=== PATIENT | male | born 1965 | race Caucasian/White ===

== ENCOUNTER 2017-01-31 18:56 | Inpatient (IN) ==
--- NOTE | 2017-01-31 20:23 | Emergency Department Note ---
Disposition Clinical Impression: Abscess of skin or subcutaneous tissue, Cellulitis Disposition: Home, Self-Care Condition: Fair Referrals: Luiz Brock DO [Primary Care Provider] - Forms: ED Satisfaction Letter Time of Disposition: 00:02 Skin/Abscess/FB HPI Chief complaint: ED Skin/Abscess/Foreign Body Stated complaint: abscess on right palm Time Seen by Provider: 01/31/17 20:18 Source: patient Mode of arrival: private vehicle Limitations: no limitations Nursing Notes Reviewed: Yes Vital Signs Reviewed: Yes HPI Narrative: 51-year-old male presents to the emergency department with complaining of an abscess to his right hand. Patient states that this area has been progressively worsening after an injury which occurred approximately 20 years ago. Patient states that over the last 12 months it has been progressively becoming more painful and swollen. Patient has been evaluated at several different facilities, most recently evaluated here by Dr. Dominguez. Patient states that he was seen in the office today and had the site aspirated, and then states "I was told to come here for admission, IV antibiotics and surgery. " There has not been any communication noted between physician to physician or mid -level provider regarding this patient's plan of care. Review of his documentation which she has on him shows that patient is currently being treated with hydrocodone 7.5 milligrams and doxycycline. Patient states that he has severe pain and difficulty extending his fingers. He denies any fever, chills, nausea or vomiting. He denies any chest pain or shortness of breath. He denies any dizziness or lightheadedness. Patient is unsure of his current tetanus status, but refuses immunization. Pt Subjective Complaint: abscess/boil Onset (ago): year(s) Tetanus Up to Date: no Location: R hand Severity: severe Quality: aching, constant Consistency: constant Improves with: none Worsens with: palpation, movement Context: none Associated symptoms: Reports: denies other symptoms Treatments prior to arrival: antibiotic, prescription analgesic Home Medications Medication Instructions Recorded Confirmed Gabapentin [Neurontin] 300 mg PO TID 01/15/17 01/31/17 Hydrocodone Bitartrate [Zohydro ER] 50 mg PO BID PRN 01/15/17 01/31/17 Methocarbamol [Robaxin] 750 mg PO Q8HR 01/15/17 01/31/17 Allergies Allergy/AdvReac Type Severity Reaction Status Date / Time Penicillins [PCN] Allergy See Verified 01/31/17 19:22 Comments tramadol Allergy Itching Verified 01/31/17 19:22 All systems ED: reviewed and negative except as stated. Constitutional: Denies: fever, chills Cardiovascular: Denies: chest pain Respiratory: Denies: cough, dyspnea Gastrointestinal: Denies: abdominal pain, nausea, vomiting Musculoskeletal: Reports: arthralgia, myalgia. Denies: back pain, neck pain Integumentary: Reports: lesions. Denies: rash, abrasion Neurological: Denies: headache Psychiatric: Denies: anxiety, depression, suicidal thoughts, homicidal thoughts Past Medical History - Past Medical History Attestation: Yes The following information was validated with the patient. Source: patient, nursing notes reviewed Medical history: Reports: arthritis, other Psychiatric history: Reports: no psych history - Social History Smoking Status: Former smoker Smokeless Tobacco Status: No Alcohol use: Reports: none Drug use: Reports: none Physical Exam - General Limitations: no limitations General appearance: alert, in no apparent distress - Head Head exam: atraumatic, normocephalic, normal inspection - Eye Eye exam: Present: normal appearance, PERRL - Neck Neck exam: Present: normal inspection, full ROM, trachea midline - Chest Chest inspection: Present: normal inspection, symmetric chest wall rise - Respiratory Respiratory exam: Present: normal lung sounds bilaterally. Absent: respiratory distress - Cardiovascular Cardiovascular exam: Present: regular rate, normal rhythm, normal heart sounds - Expanded Upper Extremity Exam Hand exam: Present: tenderness, swelling, erythema Hand L/R front image: 1 - other (Approximately 2 x 2 cm cystic type swollen area with corresponding erythema consistent with cellulitis. Range of motion limited by pain. Flexion of the fourth and fifth digits limited by pain. Neurovascularly intact distally. Good capillary refill.) - Back Exam Back exam: Present: normal inspection, full ROM. Absent: tenderness - Neurological Exam Neurological exam: Present: alert, oriented X3 - Psychiatric Psychiatric exam: Present: normal affect, normal mood - Skin Skin exam: Present: warm, dry, intact Course Course Narrative: Patient was reportedly seen and evaluated by Dr. Dominguez with orthopedics regarding the abscess/cyst noted to the right palm. Patient was previously evaluated at another facility, had an MRI performed of his extremity which showed a palmar cyst measuring 1.3 x 0.9 x 1.8. Patient has a increased pain and swelling at the site. Patient states that he was seen and evaluated by orthopedics today and had this area aspirated. He complains of increased pain and redness to the affected area. He denies any fever, chills, nausea or vomiting. I discussed this patient's case with orthopedics, they agree with admission to hospital and will see patient tomorrow. I discussed this patient's admission with the hospitalist and he accepts. Patient verbalized understanding and agreement with plan of care. Vital Signs Temperature 98.1 F 01/31/17 19:20 Pulse Rate 105 01/31/17 19:20 Respiratory Rate 18 01/31/17 19:20 Blood Pressure 142/95 01/31/17 19:20 O2 Sat by Pulse Oximetry 97 01/31/17 19:20 Temperature 98.1 F 01/31/17 19:20 Pulse Rate 99 01/31/17 23:03 Respiratory Rate 16 01/31/17 23:03 Blood Pressure 138/90 01/31/17 23:03 O2 Sat by Pulse Oximetry 97 01/31/17 20:23 Oxygen Delivery Oxygen Delivery Room Air Skin/Abscess/Foreign Body - Lab Data Lab results reviewed: Yes I reviewed the patient's lab results. Result diagrams: 01/31/17 21:50 01/31/17 21:50 Lab Results 01/31/17 01/31/17 Range/Units 21:50 21:50 WBC 11.8 H (4.3-11.1) K/mcL RBC 4.98 (4.19-5.50) M/mcL Hgb 15.3 (12.9-16.9) g/dL Hct 44.4 (37.5-50.1) % MCV 89.2 (83.0-100.0) fL MCH 30.7 (28.0-33.3) pg MCHC 34.5 (31.6-35.5) g/dL RDW 13.2 (11.5-14.5) % Plt Count 276 (140-400) K/mcL MPV 10.4 (9.4-12.4) fL Immature Gran % 0.3 (0-4) % Seg Neutrophils % 65.9 % Lymphocytes % 22.6 % Monocytes % 8.1 % Eosinophils % 2.5 % Basophils % 0.6 % Neutrophils # 7.8 (1.6-8.9) K/mcL Lymphocytes # 2.7 (0.6-4.6) K/mcL Monocytes # 1.0 (0.0-1.3) K/mcL Eosinophils # 0.3 (0.0-0.6) K/mcL Basophils # 0.1 (0.0-0.2) K/mcL Sodium 138 (136-145) mEq/L Potassium 3.9 (3.5-4.5) mEq/L Chloride 104 (98-109) mEq/L Carbon Dioxide 22 (19-29) mEq/L BUN 16 (8-26) mg/dL Creatinine 1.02 (0.72-1.25) mg/dL Est GFR ( Amer) > 60 (> 60) Est GFR (Non-Af Amer) > 60 (> 60) BUN/Creatinine Ratio 16 (6-26) Glucose 106 H (70-99) mg/dL Calculated Osmolality 288 (280-300) Calcium 9.2 (8.6-10.8) mg/dL - Radiology Data Radiology results reviewed: Yes I reviewed the patient's radiology results.
[2017-01-31] MEDS ORDERED: 0.9 % Sodium Chloride 500 ML IV.SOLN IV ONE (20:57)
[2017-01-31] MEDS ORDERED: Clindamycin 600 MG/50 ML 600 MG/50 ML IV.SOLN IVPB ONE (20:58)
[2017-01-31] MEDS ORDERED: Ketorolac 30 MG/ML VIAL IV ONE (20:58)
[2017-01-31 21:54] LABS: Basophils # 0.1 K/mcL (0.0-0.2); Basophils % 0.6 %; Eosinophils # 0.3 K/mcL (0.0-0.6); Eosinophils % 2.5 %; Hematocrit 44.4 % (37.5-50.1); Hemoglobin 15.3 g/dL (12.9-16.9); Immature Granulocytes % 0.3 % (0-4); Lymphocytes # 2.7 K/mcL (0.6-4.6); Lymphocytes % 22.6 %; Mean Corpuscular HGB Conc 34.5 g/dL (31.6-35.5); Mean Corpuscular Hemoglobin 30.7 pg (28.0-33.3); Mean Corpuscular Volume 89.2 fL (83.0-100.0); Mean Platelet Volume 10.4 fL (9.4-12.4); Monocytes % 8.1 %; Neutrophils # 7.8 K/mcL (1.6-8.9); Platelet Count 276 K/mcL (140-400); Red Blood Count 4.98 M/mcL (4.19-5.50); Red Cell Distribution Width 13.2 % (11.5-14.5); Segmented Neutrophils % 65.9 %
[2017-01-31 22:15] LABS: BUN/Creatinine Ratio 16 (6-26); Blood Urea Nitrogen 16 mg/dL (8-26); Calcium 9.2 mg/dL (8.6-10.8); Carbon Dioxide 22 mEq/L (19-29); Chloride 104 mEq/L (98-109); Glucose 106 mg/dL (70-99); Osmolality,Calculated 288 (280-300); Potassium 3.9 mEq/L (3.5-4.5); Sodium 138 mEq/L (136-145); eGFR For African Americans > 60 (> 60); eGFR For Non-African Americans > 60 (> 60)
--- NOTE | 2017-01-31 23:42 | Emergency Department Note ---
START Narrative - START START: I examined this patient and my medical decision-making was reviewed with the TECHNOLOGY PROGRAM MANAGER/PA/Advanced Practice Nurse/Resident Physician. I agree with the documented findings, disposition and treatment plan as described except to the extent set forth below. ED attending note: Patient seen Sarah FORD. Please see a copy of his note for details of the H&P, evaluation, management and disposition of this patient. We independently had [id number] contact with the patient Briefly: A 51-year-old [id number] male history of puncture wound to the hand many years ago had a MRI in November showing a fluid collection consistent. However getting worse over the past several days. Was evaluated by orthopedist this morning and advised her to the ER for possible admission. Patient has swelling of the right palm denies fevers or chills. CT scan shows acute superinfected. Patient getting IV clindamycin we consulted with fall from orthopedics patient will be admitted to the hospitalist with orthopedic consultation. Patient stable
[2017-02-01] MEDS ORDERED: *HR* HYDROmorphone (PF) 1 MG/ML SYRINGE IV ONE
[2017-02-01] MEDS ORDERED: Ondansetron 4 MG/2 ML VIAL IV ONE
--- NOTE | 2017-02-01 00:33 | Internal Med History&Physical ---
Date of Encounter: 02/01/17 Time of Encounter: 00:29 Assessment and Plan (1) HTN (hypertension) Current visit: Yes Status: Chronic mildy elevated Qualifiers: Hypertension type: essential hypertension Qualified Code(s): I10 - Essential (primary) hypertension (2) Obesity Current visit: Yes Status: Chronic chronic Qualifiers: Obesity type: due to excess calories Obesity severity: non-morbid Qualified Code(s): E66.09 - Other obesity due to excess calories (3) Abscess of skin or subcutaneous tissue Current visit: Yes Status: Acute absess of right palm ortho consulted will see pt for surgical intervention patient actually sent to ER by Ortho Qualifiers: Site of cutaneous abscess: extremity Site of cutaneous abscess of extremity : hand Laterality: right Qualified Code(s): L02.511 - Cutaneous abscess of right hand Internal Medicine - H&P: HPI Chief complaint: right palm absess Admitted From: Emergency Dept Plans for Post Hospital Care: Home History of present illness: Mr. Zelaya is a 51 year old male Patient with history of hypertension no other significant medical history patient had injury to right hand palm several years ago patient had developed a progressive worsening swelling which has become painful seen orthopedic in the office aspirated this swollen area and apparently some abscess . patient then sent to emergency room to be admitted for IV antibiotics and surgical intervention tomorrow patient denies any fever or chills. Palm is swollen CT of the hand comfirms fluid collection Past Med Surg Social Fam HX - Past Medical History Medical history: arthritis, hypertension, other Psychiatric history: no psych history - Social History Smoking Status: Former smoker Smokeless Tobacco Status: No Alcohol use: none Drug use: none Internal Medicine - H&P: Meds Gabapentin [Neurontin] 300 mg PO TID 01/15/17 [History] Hydrocodone Bitartrate [Zohydro ER] 50 mg PO BID PRN 01/15/17 [History] Methocarbamol [Robaxin] 750 mg PO Q8HR 01/15/17 [History] Allergies Penicillins [PCN] Allergy (Verified 01/31/17 19:22) See Comments immunity tramadol Allergy (Verified 01/31/17 19:22) Itching All Systems PM: A 10-system review of systems was performed and is negative for pertinent findings except as documented above in the HPI. - Constitutional Constitutional: no chills, no fever(s), no night sweats - EENT Eyes: no change in vision, no discharge, no pain, no photophobia Ears: no ear discharge, no ear pain, no tinnitus Nose, mouth and throat: no dysphagia, no nasal discharge, no neck pain, no sore throat - Cardiovascular Cardiovascular ROS IM: no chest pain, no diaphoresis, no dyspnea, no lightheadedness, no palpitations, no syncope - Respiratory Respiratory: no cough, no dyspnea, no wheezing, no excessive phlegm production - Gastrointestinal Gastrointestinal: no abdominal pain, no diarrhea, no hematemesis, no hematochezia, no melena, no nausea, no vomiting - Musculoskeletal Musculoskeletal ROS IM: deformity, other - Integumentary Integumentary IM: erythema, other - Neurological Neurological ROS: no confusion, no convulsions, no focal weakness, no numbness, no tingling, no tremor(s) - Hematologic/Lymphatic Hematologic/Lymphatic: no easy bruising - Constitutional Vitals: Temp Pulse Resp BP Pulse Ox 98.4 F 99 20 125/84 93 02/01/17 00:16 02/01/17 00:16 02/01/17 00:16 02/01/17 00:16 02/01/17 00:16 - Head Head exam: Present: atraumatic, normocephalic - Eye Eye exam: Present: PERRL, conjuntiva pink, sclera anicteric Pupils: Present: PERRL - Neck Neck exam general surgery: Present: supple, trachea midline. Absent: lymphadenopathy - Respiratory Respiratory exam: Present: CTAB. Absent: accessory muscle use, rales, rhonchi, wheezes - Cardiovascular Cardiovascular exam: Present: RRR, +S1, +S2. Absent: diastolic murmur, gallop, rubs, systolic murmur - GI/Abdominal GI/Abdominal exam: Present: normal bowel sounds, soft, no peritoneal signs. Absent: distended, tenderness - Extremities Exam Extremities exam: Present: tenderness - Expanded Upper Extremities Exam Elbow exam: Present: swelling, tenderness Internal Med - H&P Results - Labs CBC & Chem 7: 01/31/17 21:50 01/31/17 21:50 Labs: Short CBC 01/31/17 Range/Units 21:50 WBC 11.8 H (4.3-11.1) K/mcL Hgb 15.3 (12.9-16.9) g/dL Hct 44.4 (37.5-50.1) % Plt Count 276 (140-400) K/mcL Neutrophils # 7.8 (1.6-8.9) K/mcL BMP 01/31/17 21:50 Sodium 138 Potassium 3.9 Chloride 104 Carbon Dioxide 22 BUN 16 Creatinine 1.02 Glucose 106 H Calcium 9.2 - Impressions ITS Impressions Hand CT 01/31/17 20:57 IMPRESSION: Superficial fluid collection or abscess of the medialpalm. This is likely superinfected. On the previous MRI there is a cystic fluid collection measuring 1.5 cm in diameter, as possible ganglion. Carpal cysts are likely secondary to osteoarthritis. Mild findings of osteoarthritis are otherwise noted. D/ / Hai Price MD / Hai Price MD Interpreting Provider: Hai Price MD
[2017-02-01] MEDS ORDERED: Naloxone 0.4 MG/ML INJ IVP PRN (00:37)
[2017-02-01] MEDS ORDERED: MOM Conc 10 ML UD.LIQ PO PRN (00:37)
[2017-02-01] MEDS ORDERED: ZOHYDRO PO PRN (00:39)
[2017-02-01] MEDS ORDERED: Clindamycin 600 MG/50 ML 600 MG/50 ML IV.SOLN IVPB SCH (01:00)
[2017-02-01] MEDS: *HR* Enoxaparin 40 MG/0.4 ML SYRINGE SQ SCH (02:24)
[2017-02-01] MEDS: *HR* HYDROmorphone (PF) 1 MG/ML SYRINGE IVP PRN ×3 (04:15→12:33)
[2017-02-01] MEDS: 0.9 % Sodium Chloride 1,000 ML IVC SCH ×2 (04:33→20:22)
[2017-02-01 05:00] LABS: Hematocrit 41.5 % (37.5-50.1); Hemoglobin 14.1 g/dL (12.9-16.9); Mean Corpuscular Hemoglobin 30.7 pg (28.0-33.3); Mean Corpuscular Volume 90.2 fL (83.0-100.0); Mean Platelet Volume 10.7 fL (9.4-12.4); Platelet Count 223 K/mcL (140-400); Red Cell Distribution Width 13.2 % (11.5-14.5)
[2017-02-01 05:17] LABS: INR 1.1; Prothrombin Time 11.7 Seconds (9.4-12.1)
[2017-02-01] MEDS: Methocarbamol 750 MG TABLET PO SCH ×3 (05:28→20:21)
[2017-02-01] MEDS: Clindamycin 600 MG/50 ML 600 MG/50 ML IV.SOLN IVPB SCH ×3 (05:58→21:53)
[2017-02-01] MEDS: Acetaminophen 325 MG TABLET PO PRN ×2 (06:23→10:33)
[2017-02-01] MEDS ORDERED: *HR* HYDROmorphone 2 MG/ML SYRINGE IVP ONE (06:35)
[2017-02-01] MEDS: Gabapentin 300 MG CAPSULE PO SCH ×3 (08:39→20:22)
--- NOTE | 2017-02-01 10:10 | Orthopedic Consult Note ---
Date of Encounter: 02/01/17 Time of Encounter: 10:04 Assessment and Plan (1) Abscess of skin or subcutaneous tissue Current Visit: Yes Status: Acute I did discuss the diagnosis with the patient in detail. He has a fluid-filled chronic lesion in the right hand which is likely a cyst which has become superinfected. This could be related to an epidermal inclusion cyst from prior injury. Malignancy is much less of a concern. My recommendation is for operative exploration with debridement, irrigation, cultures, and biopsy. The goal of the surgery would be to confirm the diagnosis and for infection drainage. The risks discussed included but were not limited to bleeding, infection, anesthesia risks, damage to neurovascular structures, tendons, ligaments, and bone. Also discussed was the risk of continued symptoms and possible need for further procedures. I discussed the reasonable foreseeable postoperative course. The patient is NPO and we will proceed with surgery later today. Qualifiers: Site of cutaneous abscess: extremity Site of cutaneous abscess of extremity : hand Laterality: right Qualified Code(s): L02.511 - Cutaneous abscess of right hand History of Present Illness HPI: Mr. Zelaya is a 51 year old male who was admitted to the hospitalist from the emergency department with concern for a right hand infection. I was asked to assist in the evaluation and management of this patient. The patient gives a long history related to the right hand. He says that 20 years ago he was building a garage when he drove a nail through the dorsum of the right hand which penetrated volarly. He did remove the nail himself and never sought medical attention for this. He indicates that his wounds healed though he was left with a small callus on the volar aspect of the right hand. He said he continued on with life without any significant disability. He did have some mild achy pain localized to the volar aspect of the hand in the area of the callus with heavy work. Nearly 20 years had passed, and in late fall of last year he did notice that the callused area started to swell and eventually decompressed spontaneously which he says leaked a mocha colored material. After this decompression he said he noted significant improvement of the pain. He had seen a doctor in [facility] who ordered an MRI which showed a small cyst in the area and was eventually referred to our office for surgical evaluation. He was initially seen yesterday by Dr. Dominguez who was concerned about a hand abscess and had referred the patient to see Dr. Jackson. Dr. Dominguez indicates that he aspirated grossly purulent fluid which was sent for culture. He was already on doxycycline and was told to resume this and was scheduled to see Dr. Jackson on Friday. The patient went home but returned to the emergency department yesterday for worsening symptoms including swelling and pain localized to the right hand with redness. That is when he was admitted. The patient does not complain of any constitutional symptoms or feelings of illness. The patient indicates that the current symptoms are worsened with movement of the digits and better at rest. No numbness, tingling, or any other associated signs or symptoms. Past Med Surg Social Fam HX - Past Medical History Medical history: arthritis, hypertension, other Psychiatric history: no psych history - Social History Smoking Status: Former smoker Smokeless Tobacco Status: No Alcohol use: none Drug use: none - Family History Mother Age: 63 Living Status: Cause of : lung ca Hx Family Cancer: Yes (lung ca) Hx Family Endocrine Disorder: Yes (dm) Father Age: 62 Living Status: Cause of : lung ca Hx Family Cancer: Yes Hx Family Endocrine Disorder: Yes (dm) Medications and Allergies Gabapentin [Neurontin] 300 mg PO TID 01/15/17 [History] Hydrocodone Bitartrate [Zohydro ER] 50 mg PO BID PRN 01/15/17 [History] Methocarbamol [Robaxin] 750 mg PO Q8HR 01/15/17 [History] Allergies Penicillins [PCN] Allergy (Verified 01/31/17 19:22) See Comments immunity tramadol Allergy (Verified 01/31/17 19:22) Itching All Systems Reviewed: Constitutional and musculoskeletal systems were reviewed and are negative unless otherwise stated in history of present illness. Physical Exam - Constitutional Vitals: Temp Pulse Resp BP Pulse Ox 98.0 F 91 18 109/69 92 02/01/17 06:56 02/01/17 06:56 02/01/17 06:56 02/01/17 06:56 02/01/17 06:56 Constitutional -Vitals reviewed -The patient is well developed and well nourished. -Mood is pleasant. -The patient is well groomed. Psychiatric -The patient is fully alert and oriented x 3. Respiratory: -Respiratory effort normal Abdomen: -Soft abdomen -Non tender -Non distended: Right upper extremity: -The skin and the soft tissue envelope are intact. -Mild generalized edema in the hand -There is a 3 cm swollen area of fluctuance localized over the volar and ulnar side of the palm centered between the ring finger and small finger metacarpals. -There is a puncture wound which has sealed off from Dr. Dominguez's aspiration yesterday. -Minimal redness. -Significant tenderness to palpation. -Know other deformities to the hand noted. -The patient can actively flex and extend all digits (though with limitation due to edema and pain), extend the thumb, cross the index and long fingers, make an okay sign, and oppose the thumb. -The fingertips are all sensate and well-perfused with a 2+ radial artery pulse. Diagnostic Imaging: I did personally review and interpret a prior MRI from October which did show a small cyst in the superficial tissues of the right hand. Recent x-rays and a CT scan did not show any bony involvement. There is a rather large superficial soft tissue fluid and gas field lesion consistent with a prior cyst with probable superinfection. Results - Labs Result Diagrams: 02/01/17 04:14 01/31/17 21:50 Labs: Abnormal lab results Glucose 106 mg/dL (70-99) H 01/31/17 21:50 H & H 02/01/17 Range/Units 04:14 Hgb 14.1 (12.9-16.9) g/dL Hct 41.5 (37.5-50.1) % All other labs normal. Consult Discharge Plan - Plan Referrals: Luiz Brock DO [Primary Care Provider] -
[2017-02-01] MEDS ORDERED: *HR* OxyCODONE/APAP 7.5/325 TABLET PO PRN (12:29)
--- NOTE | 2017-02-01 12:31 | Event Note ---
Date of Encounter: 02/01/17 Time of Encounter: 12:27 Patient is a 51y/o male admitted for management of right hand abscess/ infection. Patient seen and examined with family present at bedside. Reports of pain being not adequately controlled but is scheduled for surgery(operative exploration with debridement, irrigation, cultures, and biopsy) by Dr. Concepcion later today. NPO at this time. Will increase Dilaudid 1mg IV to q3h prn severe pain. continue empiric IV abx at this time and will readjust therapy as per culture reports. Will readjust medications after surgery. vitals within acceptable range Will continue to closely monitor
[2017-02-01] MEDS ORDERED: Bupivacaine/EPI 1:200k 0.5%PF 10 ML VIAL ONE (14:00)
[2017-02-01] MEDS ORDERED: Lidocaine/EPI 1:100k 1% 20 ML VIAL ONE (14:00)
[2017-02-01] MEDS ORDERED: Lidocaine 1% 20 ML MDV ONE (14:01)
[2017-02-01] MEDS ORDERED: *HR* Midazolam HCl 2 MG/2 ML VIAL ONE (15:28)
[2017-02-01] MEDS ORDERED: *HR* FentaNYL (PF) 100 MCG/2 ML VIAL ONE (15:28)
[2017-02-01] MEDS ORDERED: Lidocaine -MPF 2% 2 ML VIAL ONE (15:28)
[2017-02-01] MEDS ORDERED: *HR* Propofol 200 MG/20 ML VIAL IVP ONE (15:28)
--- NOTE | 2017-02-01 16:30 | Anesthesia Evaluation PreOp ---
Date of Encounter: 02/01/17 Time of Encounter: 16:28 - Past History Planned Operation: I and D R hand Cardiac History: HTN Pulmonary History: Denies Any Significant HX BENCH REPAIR TECHNICIAN History: Denies Any Significant HX Other Medical History: Denies Any Significant HX Anesthesia History: No Prior Anesthetic Complications, Past Anesthesia (hernia repair) Alcohol Use: none Drug use: none Medications and Allergies Gabapentin [Neurontin] 300 mg PO TID 01/15/17 [History] Methocarbamol [Robaxin] 750 mg PO Q8HR 01/15/17 [History] HYDROcodone/Acet 7.5/325 mg [[place] 7.5-325 mg] 1 tab PO Q4-6H PRN 02/01/17 [ History] Allergies Penicillins [PCN] Allergy (Verified 01/31/17 19:22) See Comments immunity tramadol Allergy (Verified 01/31/17 19:22) Itching - Meds/Allergy Pre-op Review Medications Reviewed: Yes Allergies Reviewed: Yes Beta Blockers on Current Med List: No Anesthesia Results - Labs 02/01/17 04:14 01/31/17 21:50 Anesthesia Exam Vital Signs/O2 Sat, Most Current Temp Pulse Resp BP Pulse Ox 98.2 F 74 18 125/80 94 02/01/17 10:39 02/01/17 10:39 02/01/17 10:39 02/01/17 10:39 02/01/17 10:39 NPO (# of Hours): >8 - HEENT Pupil (Motor): Pupils equal, EOMI Mallampati: III Teeth: Missing Denture Type: Upper: Partial, Lower: Partial Oral Opening: Greater than 3 - BENCH REPAIR TECHNICIAN LOC: Oriented BENCH REPAIR TECHNICIAN Motor: Normal RUE, Normal LUE, Normal RLE, Normal LLE, Normal Face BENCH REPAIR TECHNICIAN Sensory: Normal: RUE, LUE, RLE, LLE, Face - Cardiac Rhythm: Regular - Pulmonary Breath Sounds: bilateral Clear Respiratory Effort: Symmetrical Anesthesia Assess/Plan ASA Score: 2, E Anesthetic Plan: General Monitoring Plan: Standard Monitors Recovery Plan: PACU
[2017-02-01] MEDS ORDERED: *HR* HYDROmorphone (PF) 1 MG/ML SYRINGE IVP PRN (16:32)
[2017-02-01] MEDS ORDERED: *HR* Promethazine 25 MG/ML VIAL IVP PRN (16:32)
[2017-02-01] MEDS ORDERED: *HR* Labetalol 100 MG/20 ML MDV IVP PRN (16:32)
[2017-02-01] MEDS ORDERED: *HR* Meperidine 25 MG/ML SYRINGE IVP PRN (16:32)
[2017-02-01] MEDS ORDERED: Ondansetron 4 MG/2 ML VIAL IVP ONE (16:32)
[2017-02-01] MEDS ORDERED: Dexamethasone 4 MG/ML VIAL ONE (16:42)
[2017-02-01] MEDS ORDERED: Ondansetron 4 MG/2 ML VIAL ONE (16:42)
[2017-02-01] MEDS ORDERED: Ringers Solution, Lactated 1,000 ML IVC SCH (16:45)
--- NOTE | 2017-02-01 17:24 | Orthopedic Operative Note ---
Date of procedure: 02/01/17 Procedure: OPERATIVE REPORT DATE OF PROCEDURE: 02/01/2017 SURGEON: Grayson Concepcion MD POMOLOGY TEACHER(S): There were no assistants PREOPERATIVE DIAGNOSIS: Right palm cyst with superinfection POSTOPERATIVE DIAGNOSIS: Same PROCEDURE: Incision, drainage, irrigation, and debridement of the right palm with palm lesion biopsy ANESTHESIA: Gen. anesthesia PREOPERATIVE ANTIBIOTICS: Clindamycin ESTIMATED BLOOD LOSS: 5 milliliters TOURNIQUET TIME: 10 minutes at 250 mmHg SPECIMENS: Right palm lesion IMPLANTS: There were no implants LOCAL INJECTION: 0.5% bupivacaine with 1:200,000 epinephrine PREOPERATIVE NOTE AND INDICATIONS: This patient is a 51-year-old male with a chronic history of a palmar lesion that had become infected. The above procedure is recommended for infection treatment and lesion diagnosis. The surgical plan was discussed with the patient. The risks, benefits, alternatives, and potential complications of this procedure were discussed with the patient including injury to veins, arteries, nerves, tendons, ligaments, and bone. Also discussed were the risks of infection, bleeding, pain, blood clots, the possible need for a blood transfusion, the possible need for further procedures, heart attack, stroke, and . All of this was explained in simple terms, and the patient verbalized understanding and wished to proceed. Consent was given to proceed with surgery. PROCEDURE: The patient was seen in the preoperative holding area where the identify and the consent were confirmed. The right palm was marked. Final questions were answered. The patient was brought back to the operating room and placed supine on the operating room table. A huddle was performed with the patient and all vital surgical team members confirming patient identity, the correct procedure, and the correct operative site. General anesthesia was administered. The right upper extremity was prepped and draped in the usual sterile fashion. A surgical time out was performed immediately preceding the incision with all personnel in the operating room to confirm patient identity, the correct operative site and extremity, correct radiographic studies, availability of appropriate surgical equipment, and agreement on the planned procedure. The tourniquet was inflated. A longitudinal incision was made over the area of fluctuance and immediately several cc of grossly purulent material was drained. This was cultured. The incision was extended proximally and distally in oblique fashion to identify normal the cutaneous tissue and palmar fascia which was carefully dissected. In the center of the wound within the superficial tissues there is a well-defined smooth walled cystic structure measuring about a centimeter in diameter which was dissected out and removed en bloc. There is no firm adherence between this structure and the bed in which it sat. The neurovascular bundle between the ring finger and small finger was identified below this lesion and found to be quite sclerotic. There was surrounding necrotic fat which was debrided sharply with a scalpel taking care to protect the neurovascular bundle. The wound was copiously irrigated. The proximal distal portions of the wound were milked and no purulent material could be expressed. A final irrigation ensued and about 1 L of saline was flushed through the wound. At this point the wound bed appeared clean. The tourniquet was deflated and small discrete bleeders were electrocauterized. The wound was left open and Xeroform and a soft dressing was placed. The instrument, sponge, and needle counts were correct after wound closure. POST OPERATIVE PLAN: DVT Prophylaxis: Ambulation Activity: Avoid aggressive activities with the right upper extremity. Wound Care: Daily dressing changes and soaks Perioperative antibiotic prophylaxis: Clindamycin until cultures delineate
--- NOTE | 2017-02-01 18:12 | Anesthesia Evaluation Post Op ---
Date of Encounter: 02/01/17 Time of Encounter: 18:10 - Vital Signs Vital Signs: Vital Signs/O2 Sat, Most Current Temp Pulse Resp BP Pulse Ox 99.4 F 91 18 129/83 96 02/01/17 17:52 02/01/17 17:52 02/01/17 17:52 02/01/17 17:52 02/01/17 17:52 - Lungs Lungs: Clear Ascult./Percussion - Airway Airway: Non-obstructed - Cardiovascular Regular Rate - Mental Status Mental Status: Alert & Oriented, Answers Appropriately - Pain Pain Scale: 0 Pain Scale used: Numeric (1 - 10) - Nausea Vomiting Nausea Vomiting: Not Present - Hydration Hydration: Tolerates oral liquids - Discharge PostOp Status: Transfer Patient to floor Attestation: I have assessed this patient and find they meet discharge criteria.
[2017-02-02] MEDS: *HR* HYDROmorphone (PF) 1 MG/ML SYRINGE IVP PRN (00:02)
[2017-02-02 05:47] LABS: Basophils % 0.2 %; Eosinophils % 0.4 %; Hematocrit 38.2 % (37.5-50.1); Hemoglobin 12.9 g/dL (12.9-16.9); Immature Granulocytes % 0.4 % (0-4); Lymphocytes # 1.5 K/mcL (0.6-4.6); Lymphocytes % 18.1 %; Mean Corpuscular HGB Conc 33.8 g/dL (31.6-35.5); Mean Corpuscular Hemoglobin 29.9 pg (28.0-33.3); Mean Corpuscular Volume 88.6 fL (83.0-100.0); Mean Platelet Volume 10.6 fL (9.4-12.4); Monocytes # 0.7 K/mcL (0.0-1.3); Monocytes % 8.3 %; Neutrophils # 5.9 K/mcL (1.6-8.9); Platelet Count 252 K/mcL (140-400); Red Blood Count 4.31 M/mcL (4.19-5.50); Red Cell Distribution Width 12.4 % (11.5-14.5); Segmented Neutrophils % 72.6 %
[2017-02-02] MEDS: Clindamycin 600 MG/50 ML 600 MG/50 ML IV.SOLN IVPB SCH (06:04)
[2017-02-02] MEDS: *HR* Enoxaparin 40 MG/0.4 ML SYRINGE SQ SCH (06:04)
[2017-02-02] MEDS: Methocarbamol 750 MG TABLET PO SCH ×2 (06:05→14:19)
[2017-02-02 06:12] LABS: BUN/Creatinine Ratio 16 (6-26); Blood Urea Nitrogen 14 mg/dL (8-26); Calcium 8.4 mg/dL (8.6-10.8); Carbon Dioxide 20 mEq/L (19-29); Chloride 106 mEq/L (98-109); Glucose 202 mg/dL (70-99); Magnesium 2.1 mg/dL (1.6-2.6); Osmolality,Calculated 288 (280-300); Phosphorous 2.3 mg/dL (2.3-4.7); Potassium 4.1 mEq/L (3.5-4.5); Sodium 136 mEq/L (136-145); eGFR For African Americans > 60 (> 60); eGFR For Non-African Americans > 60 (> 60)
--- NOTE | 2017-02-02 07:46 | Orthopedics Progress Note ---
Date of Encounter: 02/02/17 Time of Encounter: 07:43 - Assessment and Plan (1) Abscess of skin or subcutaneous tissue Current Visit: Yes Status: Acute S: Pain significantly improved to the right hand. No new complaints. O: Afebrile, VSS Right hand wound with no drainage. No redness. Wound bed is clean and dry He can flex and extend the digits grossly with mild pain inhibition. The fingertips are sensate and well perfused. Cultures pending. Pathology pending. A: Post op day 1 after I and D of the right palm with cyst excision. P: Orthopedically stable discharge. Recommend PO Clindamycin until cultures come back. Daily dressing changes and soaks. Ice and elevation to the right hand. I discussed with the patient performing daily peroxide soaks. Follow up with me in the office on . Qualifiers: Site of cutaneous abscess: extremity Site of cutaneous abscess of extremity : hand Laterality: right Qualified Code(s): L02.511 - Cutaneous abscess of right hand Subjective Interval history: S: Pain significantly improved to the right hand. No new complaints. O: Afebrile, VSS Right hand wound with no drainage. No redness. Wound bed is clean and dry He can flex and extend the digits grossly with mild pain inhibition. The fingertips are sensate and well perfused. Cultures pending. Pathology pending. A: Post op day 1 after I and D of the right palm with cyst excision. P: Orthopedically stable discharge. Recommend PO Clindamycin until cultures come back. Daily dressing changes and soaks. Ice and elevation to the right hand. I discussed with the patient performing daily peroxide soaks. Follow up with me in the office on . Objective Vital signs: Vital Signs Temp Pulse Resp BP Pulse Ox 02/02/17 04:50 98.9 F 77 16 107/63 97 02/01/17 23:22 98.2 F 87 18 115/65 95 02/01/17 20:19 98 F 82 18 129/80 93 02/01/17 18:13 98.6 F 86 16 129/79 94 02/01/17 17:52 99.4 F 91 18 129/83 96 02/01/17 17:42 95 18 131/87 94 02/01/17 17:32 92 16 118/82 96 02/01/17 17:22 99.4 F 94 12 114/75 96 02/01/17 10:39 98.2 F 74 18 125/80 94 Intake and Output 02/01/17 02/01/17 02/02/17 15:59 23:59 07:59 Intake Total 50 / 50 1350 / 1350 450 / 450 Output Total 250 / 250 1305 / 1305 Balance -200 / -200 45 / 45 450 / 450 Intake: IV Fluids 50 / 50 1000 / 1000 50 / 50 0.9 % Sodium Chloride 1, 1000 / 1000 000 ML @ 75 mls/hr IVC . [id number] KAREN Rx#: [id number] Cleocin 600 MG/50 ML 600 50 / 50 50 / 50 mg In 50 ml @ 50 mls/hr IVPB Q8H KAREN Rx#: [id number] Oral 350 / 350 400 / 400 Output: Urine 250 / 250 1300 / 1300 Estimated Blood Loss 5 / 5 Other: # Voids 1 - Labs CBC & BMP: 02/02/17 05:22 02/02/17 05:22 Labs: Abnormal lab results Glucose 202 mg/dL (70-99) H 02/02/17 05:22 Calcium 8.4 mg/dL (8.6-10.8) L 02/02/17 05:22 - VTE Documentation of Mechanical Device: Intermittent pneumatic compression device Consult Discharge Plan - Plan Referrals: Luiz Brock DO [Primary Care Provider] -
[2017-02-02] MEDS: Gabapentin 300 MG CAPSULE PO SCH ×2 (08:55→14:18)
--- NOTE | 2017-02-02 14:30 | Discharge Summary ---
Date of Encounter: 02/02/17 Time of Encounter: 14:28 - Discharge Diagnosis (1) Abscess of skin or subcutaneous tissue Priority: Primary Status: Acute Qualifiers: Site of cutaneous abscess: extremity Site of cutaneous abscess of extremity : hand Laterality: right Qualified Code(s): L02.511 - Cutaneous abscess of right hand (2) HTN (hypertension) Priority: Secondary Status: Chronic Qualifiers: Hypertension type: essential hypertension Qualified Code(s): I10 - Essential (primary) hypertension (3) Obesity Priority: Secondary Status: Chronic Qualifiers: Obesity type: due to excess calories Obesity severity: non-morbid Qualified Code(s): E66.09 - Other obesity due to excess calories - Discharge Medications Prescriptions: Clindamycin HCl [Cleocin HCl] 300 mg PO TID #30 cap Home Medications: Gabapentin [Neurontin] 300 mg PO TID 01/15/17 [History] Methocarbamol [Robaxin] 750 mg PO Q8HR 01/15/17 [History] HYDROcodone/Acet 7.5/325 mg [Selah 7.5-325 mg] 1 tab PO Q4-6H PRN 02/01/17 [ History] Clindamycin HCl [Cleocin HCl] 300 mg PO TID #30 cap 02/02/17 [Rx] Allergies/Adverse Reactions: Allergies Penicillins [PCN] Allergy (Verified 01/31/17 19:22) See Comments immunity tramadol Allergy (Verified 01/31/17 19:22) Itching Date of admission: 02/01/17 00:35 Primary care physician: Luiz Brock Consults: 02/01/17 00:40 Consult to Physician [CONS] Routine Consulting Provider: Grayson Concepcion Reason for Consult: right palm absess Time Notified: 00:41 Call Completed: No Discharging clinician: Ketty Sam Anticipated date of discharge: 02/02/17 - Patient Status Disposition: Home, Self-Care Condition: Good Functional capacity at discharge: independent ambulation Overall status at discharge: patient is back to baseline - Discharge Instructions Follow Up With: Luiz Brock DO [Primary Care Provider] - Additional Instructions: Please follow up with Dr Concepcion on January. Continue daily dressing changes as per Dr. Concepcion. Continue oral antibiotics until your appointment with Dr. Wiltfong, he may change the antibiotic therapy as per your wound culture reports. This antibiotic may cause severe diarrhea. If severe diarrhea occurs, please discontinue use and seek medical help, as Clindamycin may cause C-diff colitis. Please increase your daily yogurt (probiotic) intake while you are on the antibiotic. Please follow up with your primary care physician within one week after your discharge from the hospital. Please resume all your home medications as prescribed by your primary care physician. - Diet and Activity Activity: resume usual activities as tolerated Diet: advance to your usual diet Hospital course: Mr. Zelaya is a 51 year old male with PMH Of HTN, arthritis who was admitted for abscess of right hand. Patient was followed by orthopedic surgery and underwent I&D of the right palm with cyst excision, wound cultures were sent. He was empirically started on IV Clindamycin upon arrival. He is to be discharged on oral abx and will be further managed by ortho as outpatient. At this time patient is hemodynamically stable, was taught how to change his dressing daily by ortho. Patient denies any painful discomfort. He will be discharged to home with oral antibiotics and follow up with PCP and ortho. Patient demonstrates understanding of his diagnosis and agree with the discharge plan. - Time Spent with Patient Total time spent providing and/or coordinating discharge services: Less than 30 minutes - Constitutional Vitals: Temp Pulse Resp BP Pulse Ox 98.6 F 71 16 109/55 99 02/02/17 11:29 02/02/17 11:29 02/02/17 11:29 02/02/17 11:29 02/02/17 11:29 General appearance: Present: cooperative, A&O X 3, pleasant, no acute distress, answers questions appropriately - Head Head exam: Present: atraumatic, normocephalic - Eye Eye exam: Present: PERRL, conjuntiva pink, sclera anicteric - Respiratory Respiratory exam: Present: CTAB. Absent: accessory muscle use, rales, rhonchi, wheezes - Cardiovascular Cardiovascular exam: Present: RRR, +S1, +S2. Absent: diastolic murmur, gallop, rubs, systolic murmur - GI/Abdominal GI/Abdominal exam: Present: normal bowel sounds, soft, no peritoneal signs. Absent: distended, tenderness - Extremities Exam Extremities exam: Present: warm, radial pulses palpable and symetrical. Absent : calf tenderness, cyanotic, pedal edema Additional comments: right hand dressing intact - Neurological Exam Neurological exam: Present: alert, oriented X3 - Psychiatric Psychiatric exam: Present: normal affect, normal mood - VTE Documentation of Mechanical Device: Intermittent pneumatic compression device
[2017-02-03 11:43] VITALS: BP 109/55
== END 2017-02-02 15:42 | disposition home or self-care (01) | DRG 581 ==
LOC: 3NENU 18:56 → EMEROO 18:56 → 3NENU 02-01 00:34 → SUATTDRO 02-01 00:35 → 3NENU 02-01 00:40
PROVIDERS: ADMIT Internal Medicine Cardiovascular Disease; ATTEND Internal Medicine